=== PATIENT | female | born 1955 | race Caucasian/White ===

== ENCOUNTER 2024-09-09 08:24 | Emergency (ER) | payer MEDICARE ==
[~2024-09-09] VITALS: Ht 157.5 cm; Wt 56.2 kg
[~2024-09-09 08:24] MED LIST: TRAMADOL HYDROC50 M1 PO; ZOFRAN4 MG/TAB PO
[2024-09-09] MEDS ORDERED: KETOROLAC TROMETHAMINE 15 MG/ML SDV IV ONE (08:40)
[2024-09-09] MEDS ORDERED: cefTRIAXone SODIUM 2 GM in SODIUM CHLORIDE 0.9% 100 ML IV ONE (08:40)
[2024-09-09] MEDS ORDERED: SODIUM CHLORIDE 0.9% 1,000 ML IV ONE (08:40)
[2024-09-09] MEDS ORDERED: ONDANSETRON HCl 4 MG/2 ML SDV IV ONE (08:55)
[2024-09-09 09:05] LABS: BASO% 0.1 % (0-3); EOS% 0.2 % (0-8); HEMOGLOBIN 14.8 g/dl (12.0-16.0); IMMATURE GRANULOCYTES 0.5 % (0.0-5.0); LYMPH% 41.2 % (15-41); MEAN CORPUSCULAR HGB CONC 33.6 g/dL CAL (32.0-36.0); MONO% 7.8 % (2-13); NEUT# 9.05 thou/uL (2.00-7.15); NEUT% 50.2 % (42-76); RED BLOOD COUNT 4.23 mill/uL (4.20-5.60); RED CELL DISTRI WIDTH 11.7 % (11.5-15.5)
[2024-09-09 09:16] LABS: ALBUMIN 4.3 g/dL (3.2-5.0); POTASSIUM 3.6 mmol/l (3.5-5.1)
[2024-09-09 09:21] LABS: BILIRUBIN, TOTAL 0.8 mg/dL (0.02-1.3); CREATININE 0.5 mg/dL (0.5-1.0)
[2024-09-09] MEDS ORDERED: MORPHINE SULFATE 4 MG/ML VIAL IV ONE (11:30)
[2024-09-09 11:55] VITALS: BP 110/76
== END 2024-09-09 11:57 | disposition left against medical advice (07) ==
LOC: ED 08:24
PROVIDERS: Family Medicine
DX: K04.7 Periapical abscess without sinus (principal); I10 Essential (primary) hypertension; F17.200 Nicotine dependence, unspecified, uncomplicated; Z53.29 Procedure and treatment not carried out because of patient's decision for other reasons
CPT/HCPCS: J0696; J1836; J1885; J2405; Q9967

== ENCOUNTER 2024-09-23 09:30 | Emergency (ER) | payer MEDICARE ==
[~2024-09-23] VITALS: Ht 157.5 cm; Wt 56.6 kg
[2024-09-23] VITALS (9 sets, daily range): BP systolic 109–133; BP diastolic 54–67
[2024-09-23] MEDS ORDERED: ASPIRIN 81 MG/TAB PO ONE (10:25)
[2024-09-23 10:33] LABS: BASO% 0.7 % (0-3); EOS% 0.3 % (0-8); IMMATURE GRANULOCYTES 0.6 % (0.0-5.0); LYMPH% 23.3 % (15-41); MEAN CORPUSCULAR HGB 34.7 pG CALC (26.0-32.0); MEAN CORPUSCULAR HGB CONC 33.1 g/dL CAL (32.0-36.0); MONO% 7.2 % (2-13); NEUT# 6.73 thou/uL (2.00-7.15); NEUT% 67.9 % (42-76); RED BLOOD COUNT 3.43 mill/uL (4.20-5.60); RED CELL DISTRI WIDTH 11.8 % (11.5-15.5)
[2024-09-23 10:36] LABS: ALBUMIN 3.7 g/dL (3.2-5.0); ALKALINE PHOSPHATASE 61 u/l (38-126); BUN 8 mg/dL (8-23); BUN/CREATININE RATIO 16 (12-20 (CALC)); CARBON DIOXIDE 25 mmol/l (22-30); CHLORIDE 97 mmol/l (95-108); CREATININE 0.5 mg/dL (0.5-1.0); ESTIMATED GFR 103 ML/MIN (>=90 (CALC)); SGOT/AST 29 u/l (9-36); SODIUM 129 mmol/l (137-146); TOTAL PROTEIN 6.3 g/dL (6.3-8.2)
[2024-09-23 10:45] LABS: HEMOGLOBIN 11.9 g/dl (12.0-16.0)
[2024-09-23 10:46] LABS: ANION GAP 11 (6-22 (CALC)); BILIRUBIN, TOTAL 0.4 mg/dL (0.02-1.3); POTASSIUM 4.4 mmol/l (3.5-5.1)
[2024-09-23] MEDS ORDERED: predniSONE 20 MG/TAB PO ONE (11:20)
[2024-09-23] MEDS ORDERED: IPRATROPIUM-Albuterol 0.5MG-2.5MG/3 ML NEB ONE ×2 (11:20)
[2024-09-23] MEDS ORDERED: PREDNISONE50 MG PO (11:24)
[2024-09-23] MEDS ORDERED: VENTOLIN HFA108 MCG PO (11:24)
[2024-09-23] MEDS ORDERED: DOXYCYCLINE100 MG PO (11:24)
== END 2024-09-23 11:49 | disposition home or self-care (01) ==
LOC: ED 09:30
PROVIDERS: Family Medicine
DX: J06.9 Acute upper respiratory infection, unspecified (principal); I10 Essential (primary) hypertension; Z72.0 Tobacco use; Z20.822 Contact with and (suspected) exposure to COVID-19